=== PATIENT | female | born 1995 | race Caucasian/White ===

== ENCOUNTER 2018-02-28 17:43 | Emergency (ER) | payer MEDICAID ==
[~2018-02-28] VITALS: Ht 162.6 cm; Wt 67.7 kg
[2018-02-28 17:53] VITALS: BP 142/84; TEMP 98.3
[2018-02-28] MEDS ORDERED: DOSTINEX0.5 MG/TAB PO (17:57)
[2018-02-28 19:43] VITALS: PULSE 66
== END 2018-02-28 19:44 | disposition home or self-care (01) ==
LOC: COL.ER 17:43
DX: F41.9 Anxiety disorder, unspecified (principal); Z98.890 Other specified postprocedural states

== ENCOUNTER 2018-04-04 19:41 | Emergency (ER) | payer MEDICAID ==
[~2018-04-04] VITALS: Ht 162.6 cm; Wt 70.5 kg
[~2018-04-04 19:41] MED LIST: DOSTINEX0.5 MG/TAB PO
[2018-04-04 19:43] VITALS: TEMP 98.1
[2018-04-04] MEDS ORDERED: PARLODEL 2.5MG2.5 MG PO (19:46)
[2018-04-04 21:02] LABS: BASO % 0.3 % (0.0-2.0); EOS # 0.2 (0.0-0.7); EOS % 2.4 % (0-4.0); GRAN # 4.2 (1.4-6.5); GRAN % 54.9 % (42.2-75.2); HEMATOCRIT 39.6 % (37.0-47.0); HEMOGLOBIN 13.8 g/dl (12.5-16.0); LYMPH # 2.6 (1.2-3.4); LYMPH % 34.5 % (20.0-51.0); MEAN CELL VOLUME 85 fl (80.0-100.0); MEAN CORPUSCULAR HEMOGLOBIN 30 pg (27.0-31.0); MEAN CORPUSCULAR HGB CONC 35 g/dl (33.0-37.0); MEAN PLATELET VOLUME 11.6 fl (7.4-10.4); MONO # 0.6 (0.1-0.6); MONO % 7.6 % (1.7-9.3); PLATELET COUNT 214 K/mm3 (130-400); RED BLOOD COUNT 4.64 M/mm3 (4.10-5.30); REDCELL DISTRIBUTION WIDTH-CV 12.7 % (11.5-14.5)
[2018-04-04 21:02] LABS: COLLECTION METHOD CLEAN CATCH
[2018-04-04 21:09] LABS: PH 5 (5-8); URINE APPEARANCE Clear; URINE BACTERIA None Seen /hpf; URINE BILIRUBIN Negative (NEGATIVE); URINE BLOOD 1+ (NEGATIVE); URINE COLOR Yellow; URINE GLUCOSE Negative (NEGATIVE); URINE KETONE Negative (NEGATIVE); URINE LEUKOCYTE ESTERASE 1+ (NEGATIVE); URINE NITRATE Negative (NEGATIVE); URINE PROTEIN(semi-quant) Negative (NEGATIVE); URINE RBC 0-2 /hpf; URINE UROBILINOGEN Negative (NEGATIVE)
[2018-04-04 21:11] LABS: ALBUMIN 4.1 gm/dL (3.5-5.0); BILIRUBIN,TOTAL 0.3 mg/dL (0.0-1.0); CALCIUM 9.5 mg/dL (8.4-10.2); CREATININE, serum 0.66 mg/dL (0.52-1.25)
[2018-04-04 21:55] VITALS: BP 100/70; PULSE 67
== END 2018-04-04 21:55 | disposition home or self-care (01) ==
LOC: COL.ER 19:41
PROVIDERS: Physician Assistant
DX: R07.89 Other chest pain (principal); Z98.890 Other specified postprocedural states

== ENCOUNTER 2018-06-29 22:19 | Emergency (ER) | payer MEDICAID ==
[~2018-06-29] VITALS: Ht 162.6 cm; Wt 63.6 kg
[~2018-06-29 22:19] MED LIST changes: +PARLODEL 2.5MG2.5 MG PO
[2018-06-29 22:24] VITALS: TEMP 98
[2018-06-29 23:06] LABS: BASO % 0.4 % (0.0-2.0); EOS # 0.3 (0.0-0.7); EOS % 4.1 % (0-4.0); GRAN # 3.2 (1.4-6.5); GRAN % 43.1 % (42.2-75.2); HEMOGLOBIN 12.3 g/dl (12.5-16.0); LYMPH # 3.3 (1.2-3.4); LYMPH % 43.4 % (20.0-51.0); MEAN CELL VOLUME 85 fl (80.0-100.0); MEAN CORPUSCULAR HEMOGLOBIN 29 pg (27.0-31.0); MEAN CORPUSCULAR HGB CONC 34 g/dl (33.0-37.0); MEAN PLATELET VOLUME 11.5 fl (7.4-10.4); MONO # 0.7 (0.1-0.6); MONO % 8.7 % (1.7-9.3); PLATELET COUNT 187 K/mm3 (130-400); RED BLOOD COUNT 4.27 M/mm3 (4.10-5.30)
[2018-06-29 23:07] LABS: HEMATOCRIT 36.4 % (37.0-47.0)
[2018-06-29 23:16] LABS: ALBUMIN 3.8 gm/dL (3.5-5.0); BILIRUBIN,TOTAL 0.3 mg/dL (0.0-1.0); CALCIUM 8.9 mg/dL (8.4-10.2); CREATININE, serum 0.64 mg/dL (0.52-1.25); POTASSIUM 3.9 mmol/L (3.4-5.0)
[2018-06-29 23:30] LABS: COLLECTION METHOD CLEAN CATCH
[2018-06-29 23:37] LABS: MUCOUS Present /lpf; PH 6 (5-8); URINE APPEARANCE Clear; URINE BACTERIA None Seen /hpf; URINE BILIRUBIN Negative (NEGATIVE); URINE BLOOD Negative (NEGATIVE); URINE COLOR Yellow; URINE GLUCOSE Negative (NEGATIVE); URINE KETONE Negative (NEGATIVE); URINE LEUKOCYTE ESTERASE Negative (NEGATIVE); URINE NITRATE Negative (NEGATIVE); URINE PROTEIN(semi-quant) Negative (NEGATIVE); URINE RBC 0-2 /hpf; URINE UROBILINOGEN >=4.0 mg/dL (NEGATIVE)
[2018-06-29] MEDS ORDERED: FERRO-TIME325 MG PO (23:55)
[2018-06-30 00:07] VITALS: BP 104/68; PULSE 62
== END 2018-06-30 00:07 | disposition home or self-care (01) ==
LOC: COL.ER 22:19
PROVIDERS: Physician Assistant
DX: D64.9 Anemia, unspecified (principal); R53.81 Other malaise; R53.82 Chronic fatigue, unspecified; Z98.890 Other specified postprocedural states
CPT/HCPCS: J1885

== ENCOUNTER 2018-10-10 11:07 | Emergency (ER) | payer MEDICAID ==
[~2018-10-10] VITALS: Ht 162.6 cm; Wt 70.0 kg
[~2018-10-10 11:07] MED LIST changes: +FERRO-TIME325 MG PO
[2018-10-10 11:13] VITALS: TEMP 97.9
[2018-10-10 11:34] LABS: COLLECTION METHOD CLEAN CATCH
[2018-10-10 11:53] LABS: MUCOUS Present /lpf; PH 8 (5-8); URINE APPEARANCE Clear; URINE BACTERIA Rare /hpf; URINE BILIRUBIN Negative (NEGATIVE); URINE BLOOD Negative (NEGATIVE); URINE COLOR Yellow; URINE GLUCOSE Negative (NEGATIVE); URINE KETONE Negative (NEGATIVE); URINE LEUKOCYTE ESTERASE Negative (NEGATIVE); URINE NITRATE Negative (NEGATIVE); URINE PROTEIN(semi-quant) Negative (NEGATIVE); URINE RBC 0-2 /hpf
[2018-10-10] MEDS ORDERED: NAPROSYN500 MG PO (12:14)
[2018-10-10 12:50] VITALS: BP 106/68; PULSE 78
== END 2018-10-10 12:54 | disposition home or self-care (01) ==
LOC: COL.ER 11:07
PROVIDERS: Emergency Medicine
DX: N93.9 Abnormal uterine and vaginal bleeding, unspecified (principal); Z98.890 Other specified postprocedural states

== ENCOUNTER 2018-10-14 18:40 | Emergency (ER) | payer MEDICAID ==
[~2018-10-14] VITALS: Ht 162.6 cm; Wt 69.5 kg
[~2018-10-14 18:40] MED LIST changes: +NAPROSYN500 MG PO
[2018-10-14 19:02] VITALS: BP 125/83; TEMP 98.1
[2018-10-14 19:20] LABS: COLLECTION METHOD CLEAN CATCH
[2018-10-14 19:26] LABS: MUCOUS Present /lpf; PH 7 (5-8); SQUAMOUS EPITHELIAL 0-2 /hpf; URINE APPEARANCE Hazy; URINE BACTERIA Rare /hpf; URINE BILIRUBIN Negative (NEGATIVE); URINE BLOOD Negative (NEGATIVE); URINE COLOR Yellow; URINE GLUCOSE Negative (NEGATIVE); URINE KETONE Negative (NEGATIVE); URINE LEUKOCYTE ESTERASE Negative (NEGATIVE); URINE NITRATE Negative (NEGATIVE); URINE PROTEIN(semi-quant) Negative (NEGATIVE); URINE RBC 0-2 /hpf
[2018-10-14 20:40] VITALS: PULSE 71
== END 2018-10-14 20:40 | disposition home or self-care (01) ==
LOC: COL.ER 18:40
PROVIDERS: Emergency Medicine
DX: N91.2 Amenorrhea, unspecified (principal); R51 Headache; Z98.890 Other specified postprocedural states

== ENCOUNTER → 2018-11-16 | Outpatient (CLI) | payer MEDICAID | LOC: COL.RAD 08:08 | DX: D18.03 Hemangioma of intra-abdominal structures (principal); N91.2 Amenorrhea, unspecified | CPT/HCPCS: A9585 ==